=== PATIENT | male | born 1960 | race Two or more races ===

== ENCOUNTER → 2016-12-26 | Outpatient (CLI) | payer OTHER ==
--- NOTE | 2016-12-26 16:26 | RAD ---
AP and lateral views of the chest 12/26/2016 Indication: Status post heart transplant Comparison study: None Findings: Postsurgical changes following prior median sternotomy noted. Surgical clips projecting over the right upper chest is seen. There is no pneumothorax. Pleural effusion. Heart size is normal. No focal infiltrates are seen. Bony thorax is intact. Impression: Postsurgical changes as described without evidence of acute cardiopulmonary abnormality
== END | disposition home or self-care (01) ==
LOC: RAD 10:20
PROVIDERS: ATTEND Neuromusculoskeletal Medicine, Sports Medicine
DX: J90 Pleural effusion, not elsewhere classified (principal); Z94.1 Heart transplant status
CPT/HCPCS: 71020